=== PATIENT | male | born 1965 | race Caucasian/White ===

== ENCOUNTER 2024-01-26 21:31 | Inpatient (IN) | payer BC, SELFPAY ==
[2024-01-26] VITALS (8 sets, daily range): BP systolic 120–145; BP diastolic 66–88; BMI 26.5; BMI 26.1
[2024-01-26] MEDS: NSS 500 IV (16:11)
[2024-01-26] MEDS: TORADOL 15 MG IV (16:12)
[2024-01-26 16:22] LABS: % Basophils 0.5 % (0-2); % Eosinophils 0.7 % (0-6); % Immature Granulocytes 0.4 % (0-0.5); % Lymphocytes 14.8 % (20.5-51.1); % Monocytes 5.9 % (1.7-9.3); % Neutrophils 77.7 % (42.2-75.2); Absolute Basophils 0.1 10^3/uL (0-0.2); Absolute Eosinophils 0.1 10^3/uL (0-0.7); Absolute Immature Granulocytes 0.1 10^3/uL (0-0.05); Absolute Lymphocytes 2.5 10^3/uL (1.2-3.4); Absolute Neutrophils 13.2 10^3/uL (1.4-6.5); Hematocrit 41.6 % (39.0-52.0); Hemoglobin 14.8 g/dL (13.0-18.0); Mean Corp Hgb Conc. 35.6 g/dL (33.0-37.0); Mean Corpuscular Hgb 28.9 pg (27.0-31.0); Mean Corpuscular Volume 81.3 fL (80.0-94.0); Mean Platelet Volume 9.3 fL (7.4-10.4); Nucleated Red Blood Cells % 0 % (-); Platelet Count 362 10^3/uL (130-400); Red Blood Cell Count 5.12 10^6/uL (4.70-6.10); Red Cell Dist. Width 12.7 % (11.5-14.5)
[2024-01-26 16:29] LABS: Urine Albumin 2+ (Neg - Trace); Urine Bilirubin Negative (Negative); Urine Character Very Cloudy (Clear); Urine Color Red; Urine Glucose Negative (Negative); Urine Ketone Negative (Negative); Urine Leukocyte 1+ (Negative); Urine Nitrite Negative (Negative); Urine Occult Blood 4+ (Negative); Urine Urobilinogen 1+ (Neg - 1+)
[2024-01-26 16:40] LABS: ALT (SGPT) 23 U/L (0-50); AST (SGOT) 25 U/L (17-59); Albumin 4.7 g/dl (3.5-5.0); Alkaline Phosphatase 119 U/L (38-126); Blood Urea Nitrogen 19 mg/dl (9-20); Calcium 10.2 mg/dl (8.4-10.2); Carbon Dioxide 20 mmol/L (22-30); Chloride 99 mmol/L (98-107); Estimated Creatinine Clearance 83 ml/min; Glucose 119 mg/dl (70-99); Lipase 113 U/L (23-300); Potassium 4.2 mmol/L (3.5-5.1); Sodium 136 mmol/L (135-145); Total Bilirubin 0.6 mg/dl (0.2-1.3); Total Protein 7.1 g/dl (6.3-8.2); Urine Bacteria Few (Negative); Urine Red Blood Cell 90-100 /HPF (0-2); Urine Squamous Cell 0-2 /LPF (Few); eGFR > 60.00
--- NOTE | 2024-01-26 20:02 | ED.GENMED ---
History of Present Illness
General
Chief Complaint: Abdominal Symptoms
Time Seen by Provider: 01/26/24 15:23
History of Present Illness
History of Present Illness:
Patient presents with right lower abdominal pain and mild diffuse lower abdominal pain along with right flank pain. Started earlier today. Also noted hematuria. Some dysuria.
Past History
Past History
ED Past Medical History: HTN and Hypercholesterolemia
ED Past Surgical History: None
Phy Exam
Physical Exam
Physical Exam:
GENERAL: Alert and oriented in no apparent distress
EYE: Orbits normal.
NECK: Supple, no significant adenopathy.
ENT: Pharynx without erythema
CARDIAC: Regular rate and rhythm without any obvious murmurs.
LUNGS: Clear breath sounds,normal
ABDOMEN: Soft, without focal tenderness or distention. No CVA tenderness
NEUROLOGICAL: Alert and oriented , grossly non-focal
SKIN: Warm and dry, no rash or lesion, no discoloration, skin intact.
MUSCULOSKELETAL: No edema,no deformity.Good color
PSYCH: Normal and appropriate interaction.
Course
Orders/Labs/Results
Orders:
Orders
01/26/24 15:56
IV Insert/Care/Rem.- Treatment PRN
0.9% Sodium Chloride 500 ml [Nss] 500 ml IV BOLUS
Ketorolac [Toradol] 15 mg IV NOW STA
01/26/24 15:57
CT Abd/pel Without Iv Or Oral Urgent
Comment:
Reason For Exam: Right flank pain/hematuria
01/26/24 16:10
Complete Blood Count/With Diff Urgent
Comprehensive Metabolic Panel Urgent
Lipase Urgent
Urinalysis Reflex To Culture Urgent
Date Specimen was Collected: 01/26/24
Time Specimen was Collected: 16:04
Urine Microscopic Reflex Cult Urgent
Urine Culture Urgent
ROSEANNE Source: U
Specimen Description:
Date Specimen was Collected: 01/26/24
Time Specimen was Collected: 16:04
01/26/24 19:59
Urine Culture Urgent
ROSEANNE Source: Urine
Specimen Description:
01/26/24 20:01
CefTRIAXone [Rocephin] 1,000 mg IV NOW STA
Abnormal Lab Results
01/26/24
16:10
WBC 17.0 H 10^3/uL
(4.8-10.8)
Abs Immat Gran (auto) 0.1 H 10^3/uL
(0-0.05)
Absolute Neuts (auto) 13.2 H 10^3/uL
(1.4-6.5)
Absolute Monos (auto) 1.0 H 10^3/uL
(0.1-0.6)
Neutrophils % 77.7 H %
(42.2-75.2)
Lymphocytes % 14.8 L %
(20.5-51.1)
Carbon Dioxide 20 L mmol/L
(22-30)
Glucose 119 H mg/dl
(70-99)
Ur Occult Blood Reflex 4+ A
(Negative)
Leukocyte Esterase Rfl 1+ A
(Negative)
Urine RBC 90-100 A /HPF
(0-2)
Urine Bacteria (Reflex) Few A
(Negative)
Urine Albumin (Reflex) 2+ A
(Neg - Trace)
01/26/24 16:10
01/26/24 16:10
Vital Signs
Initial and Last Documented VS:
Initial Vital Signs
Temp Pulse Resp BP Pulse Ox
98.0 F 70 16 145/84 98
01/26/24 15:13 01/26/24 15:13 01/26/24 15:13 01/26/24 15:13 01/26/24 15:13
Last Documented Vital Signs
Temp Pulse Resp BP Pulse Ox
98.0 F 77 18 125/75 98
01/26/24 15:13 01/26/24 18:30 01/26/24 18:30 01/26/24 19:00 01/26/24 19:00
MDM/Problems Addressed
Differential Diagnosis Includes:
Right flank pain hematuria. Consistent with kidney stone. Workup in progress. Bilateral ureteral stones with 1 causing hydro. Perinephric stranding bilaterally. 17,000 white count. Discussed with urology. Admit IV antibiotics plan for OR
tomorrow
*Radiology
Radiology exam reviewed: radiology read reviewed (Obstructing stone right UVJ. Nonobstructing ureteral stone left UVJ. Bilateral perinephric stranding)
*Pulse Oximetry
Patient hypoxic: no
*Critical Care Note
Total Time (30-74mins, 75-104mins- exclusive of procedures): Not Applicable
Update Note
Update Note:
Reviewed results and labs with urology. Given the bilateral ureteral stones, obstructing stones in the right, bilateral perinephric stranding and 17,000 count patient will be admitted IV antibiotics. Plan would be OR tomorrow
ED Attending Note
-
Portions of this chart may have been created with voice recognition software.� Occasional wrong word or��sound alike� substitutions may have occurred due to the inherent limitations of voice recognition software.
Discharge Plan
Departure
Patient Disposition: Admit
Date of Disposition: 01/26/24
Time of Disposition: 20:02
Presentation/result/management discussed w/ accepting MD/DO: Medhat
Discharge Problem:
5 mm right UVJ stone with obstruction, Ureteral stones left mid ureter
Referrals:
Deny Voss MD [Family Provider] -
Interventions
Interventions:
*Risk Screen - Suicide Last Done: 01/26/24 16:05
*General Assessment Last Done: 01/26/24 16:05
*Neglect/Abuse Screening Last Done: 01/26/24 16:05
ED- Fall Risk Assessment Last Done: 01/26/24 16:30
*ED COVID-19 Vaccine History Last Done: 01/26/24 16:05
IZ-Xjhoah-Tdfgzobfhl Assessment Last Done: 01/26/24 16:30
Discharge Date and Time
Print Language: UZBEK
[2024-01-26] MEDS: ROCEPHIN 1000 MG IV (20:16)
--- NOTE | 2024-01-26 21:12 | HPS.HSE ---
Family Physician
-
Family Physician: Deny Voss
Chief Complaint
-
Flank Pain / Hematuria
History of Present Illness
Patient is a 58y M with PMH significant for hypertension and dyslipidemia who presents to ED complaining of back pain, abdominal pain and hematuria. Patient states that he noted lower back discomfort yesterday and lower abdominal pain and
grossly bloody urine earlier today. He denies any prior history of kidney stones. No fevers / chills. No N/V/D. No other current complaints.
Medical History
Past Medical History
Past Medical History: Reports Other
Additional Past Medical History:
Hypertension
Dyslipidemia
Past Surgical History: Reports None and Other
Social History
Tobacco: Non-smoker
Alcohol: None
Drug: None
Family History
Family History: Not pertinent
Allergies / Home Medications
Allergies reflects when Allergies were last updated in [facility].
Home Medications with original date entered in [facility]
Allergy/Medication List:
Allergies
Allergy/AdvReac Type Severity Reaction Status Date / Time
No Known Allergies Allergy Verified 01/26/24 15:15
Home Medications
atorvastatin 10 mg tablet 10 mg PO QPM 01/26/24
lisinopril 20 mg tablet 20 mg PO QPM 01/26/24
Review of Systems
-
History Source: Patient
A 12 point ROS was completed and negative except as noted: Yes
Constitutional: Denies Fever, Fatigue or Chills
Respiratory: Denies Cough or Trouble Breathing
Cardiac: Denies Chest Pain or Palpitations
Abdomen/GI: Reports Abdominal Pain; Denies Nausea, Vomiting or Diarrhea
: Reports Flank Pain and Bleeding; Denies Dysuria
Musculoskeletal: Denies Joint Pain or Edema
Neurological: Denies Dizzy or Headache
Psych: Denies Depression or Anxiety
Physical Exam
Vital Signs
Vital Signs
Temp Pulse Resp BP Pulse Ox
98.0 F 77 18 125/75 98
01/26/24 15:13 01/26/24 18:30 01/26/24 18:30 01/26/24 19:00 01/26/24 19:00
Physical Exam
General: Other (58y M in no acute distress.)
HEENT: Moist mucous membranes and PERRLA
Respiratory: Clear; No Wheezes, Rales or Rhonchi
Cardiac: S1/S2 and Regular Rhythm; No Murmur
GI: Soft, Non Tender, Non Distended and Normal Bowel Sounds
Genito-urinary: Costovertebral angle tend
Musculoskeletal: No Clubbing, No Cyanosis and No Edema
Neuro: AO x 3
Laboratory Results
-
01/26/24 16:10
01/26/24 16:10
Laboratory Results
Total Bilirubin 0.6 mg/dl (0.2-1.3) 01/26/24 16:10
AST 25 U/L (17-59) 01/26/24 16:10
ALT 23 U/L (0-50) 01/26/24 16:10
Alkaline Phosphatase 119 U/L (38-126) 01/26/24 16:10
Lipase 113 U/L (23-300) 01/26/24 16:10
Impression/Plan
-
A/P: Patient is a 58y M with PMH significant for hypertension who presents to ED complaining of flank pain, abdominal pain and hematuria.
Bilateral Ureteral Stones
- Admit for further evaluation and treatment.
- Bilateral UPJ stones with mild hydronephrosis on the R.
- Afebrile and non-toxic appearing.
- Flomax, IVFs, empiric abx and pain control.
- Urology evaluation for possible OR in the AM.
- Strain urine overnight.
Anion Gap Metabolic Acidosis
- AG = 17 on admission. Unclear etiology.
- Check lactic acid level.
- IVFs / abx as noted above.
- Follow for changes in labs / ltes.
Benign Hypertension
- Stable. Hold lisinopril acutely.
DVT Prophylaxis: SCDs
Code Status: Full
[2024-01-26 21:37] LABS: Lactic Acid 2.4 mmol/L (0.7-2.0)
[2024-01-26] MEDS: NSS 1000 IV (22:20)
--- NOTE | 2024-01-27 02:10 | PTCARENOTE ---
22:00 pt rec'd from ER.aaox3,self ambulates, used of restroom voided 200cc donavon urine, urine strained no stones noted. IVf nss at 125 via RAC, VS wnl, pt denies pain, oriented to unit.
[2024-01-27] MEDS: NSS 1000 IV (05:53)
[2024-01-27 06:16] LABS: Hematocrit 39.3 % (39.0-52.0); Hemoglobin 13.9 g/dL (13.0-18.0); Mean Corp Hgb Conc. 35.4 g/dL (33.0-37.0); Mean Corpuscular Hgb 29.4 pg (27.0-31.0); Mean Corpuscular Volume 83.1 fL (80.0-94.0); Mean Platelet Volume 9.2 fL (7.4-10.4); Platelet Count 323 10^3/uL (130-400); Red Blood Cell Count 4.73 10^6/uL (4.70-6.10); Red Cell Dist. Width 12.7 % (11.5-14.5); White Blood Cell Count 11.5 10^3/uL (4.8-10.8)
[2024-01-27 06:26] LABS: Lactic Acid 1.5 mmol/L (0.7-2.0)
[2024-01-27 06:29] LABS: Blood Urea Nitrogen 23 mg/dl (9-20); Carbon Dioxide 22 mmol/L (22-30); Chloride 104 mmol/L (98-107); Estimated Creatinine Clearance 83 ml/min; Glucose 102 mg/dl (70-99); Potassium 4.4 mmol/L (3.5-5.1); Sodium 137 mmol/L (135-145); eGFR > 60.00
[2024-01-27] MEDS: FLOMAX 0.4 MG PO (07:15)
--- NOTE | 2024-01-27 07:21 | W.PN.HOSP.TC ---
Today's Communication/Plan
-
discharge
Assessment / Plan
Assessment / Plan
Physical Exam
General: no acute distress appears comfortable at this time.
HEENT: Moist mucous membranes and PERRLA
Respiratory: Clear; No Wheezes, Rales or Rhonchi
Cardiac: S1/S2 and Regular Rhythm; No Murmur
GI: Soft, Non Tender, Non Distended and Normal Bowel Sounds
Genito-urinary: Costovertebral angle tend
Musculoskeletal: No Clubbing, No Cyanosis and No Edema
Neuro: AO x 3
A/P: Patient is a 58y M with PMH significant for hypertension who presents to ED complaining of flank pain, abdominal pain and hematuria.
Bilateral Ureteral Stones
- Bilateral UPJ stones with mild hydronephrosis on the R. noted on CT
- Afebrile and non-toxic appearing
- received Flomax, IVFs, empiric abx and pain control.
-Pain since resolved
-follow up Abd XR appreciated absence rt UVJ stone, left ureter cluster calculi noted unchanged, right nephrolithiasis
- counseled to Strain urine
- Urology eval appreciated stable for discharge home with outpatient follow up recommendations
Anion Gap Metabolic Acidosis
- likely d/t mild lactic acidosis
-since resolved with IVF
Benign Hypertension
- Stable.
- resume home Lisinopril on discharge
DVT Prophylaxis: SCDs
Code Status: Full
Medically stable for discharge home with outpatient follow up recommendations.
Total Time Preparing Discharge ___40____ minutes including examination of the patient, summary of the hospital stay, instructions for continuing care to all relevant caregivers; and preparation of discharge records, prescriptions, and referral
forms if necessary.
Anticipated Discharge: Today
Subjective/Interval History
-
Date of Service: January 27, 2024
No acute distress. Pain free. Reports feeling well. Has not noted passed stone. Denies new acute issues. Eager to go home.
Objective Data
-
Labs:
Laboratory Results
01/27/24
06:04
WBC 11.5 H
Hgb 13.9
Hct 39.3
Plt Count 323
Sodium 137
Potassium 4.4
Chloride 104
Carbon Dioxide 22
BUN 23 H
Creatinine 1.1
Glucose 102 H
Calcium 9.0
Vital Signs:
Vital Signs
Temp Pulse Resp BP Pulse Ox
98.1 F 101 16 126/88 97
01/26/24 22:30 01/26/24 22:30 01/26/24 22:30 01/26/24 22:30 01/26/24 22:30
I&O
01/26/24 01/27/24 01/28/24
06:59 06:59 06:59
Intake Total 240 / 240
Output Total 1525 / 1525
Balance -1285 / -1285
--- NOTE | 2024-01-27 07:49 | CONS.URO ---
Consultation
-
Date/Time Consultation Requested: 01/26/24
Date/Time Consultation Performed: 01/27/24
Requesting Provider: ED
Performing Provider: Medhat
Reason for Consultation: bilateral obstructing stones, right hydronephrosis, leukocytosis
Medical History
History of Present Illness
58M presents to ED w/ acute onset of right lower back and abdominal pain w/ grossly bloody urine early in day on 01/26/24.
Denies h/o kidney stones.
Denies F/C.
Denies N/V.
Interestingly, denies h/o left flank/back/abdominal pain - despite large volume stone burden in left ureter WITHOUT radiographic evidence of obstructive uropathy - suspect chronic obstruction.
Past Medical History
Past Medical History: HTN and Other (dyslipidemia)
Past Surgical History: None
Social History
Tobacco: Non-smoker
Alcohol: None
Drug: None
Personal:
Living: With Family
Employment: Employed
Family History
Family History: Reviewed & Not Pertinent
Allergies/Home Medications
Allergies
Allergy/AdvReac Type Severity Reaction Status Date / Time
No Known Allergies Allergy Verified 01/26/24 15:15
Home Medications
�Medication �Instructions �Recorded �Confirmed �Type
atorvastatin 10 mg tablet 10 mg PO QPM 01/26/24 01/26/24 History
lisinopril 20 mg tablet 20 mg PO QPM 01/26/24 01/26/24 History
Review of Systems
-
History Source: Patient
A 12 point Review of Systems was completed except as noted: Yes
Physical Exam
Vital Signs
Vital Signs
Temp Pulse Resp BP Pulse Ox
98.1 F 101 16 126/88 97
01/26/24 22:30 01/26/24 22:30 01/26/24 22:30 01/26/24 22:30 01/26/24 22:30
Lab / Testing Results
Laboratory Results
01/27/24 06:04
01/27/24 06:04
Physical Exam
General: Well Developed, Well Nourished, No Apparent Distress and Comfortable
HEENT: Normocephalic and Anicteric
Respiratory: Non Labored Respirations
Cardiac: S1/S2
Breast: N/A
GI: Soft, Non Tender and Non Distended
Rectal: Deferred by Provider
Genito-urinary: No Costovertebral Tend
Musculoskeletal: No Edema
Skin: Warm and Dry
Neuro: AO x 3, No Motor Deficits and Nonfocal/Grossly Intact
Hematologic/Lymphatic: No Lymphadenopathy
Psych: Calm and Intact Judgement
Assessment / Plan
-
Obstructing 5 mm right UVJ stone w/ moderate hydronephrosis
>1 cm of distal left ureteral stones WITHOUT obstructive uropathy
Non-obstructing RLP renal stone
Punctate non-obstructing LLP renal stone
CTAP w/o IV contrast:
5 mm calculus at the medial margin of the right ureterovesical junction with mild to moderate obstructive uropathy. 5 mm nonobstructing lower pole right renal calculus.
Distal left ureter collection of closely packed calculi versus a single slightly irregular calculus measuring approximately 1 cm, situated approximately 5 cm proximal to the ureterovesical junction. However, no hydroureteronephrosis. Left renal
lower pole less than 1 mm nonobstructing calculus. Scattered regions of mild peripheral left renal cortical scarring.
WBC 17 => 11.5
Cr WNL
UA +RBCs, negative nitrites/WBCs
UCx pending
On IV Ceftriaxone
Patient notes NO pain since admission from ED last night - has not seen stone pass despite straining urine.
Discussed bilateral ureteral stone burden w/ evidence of obstructive uropathy only on right side (symptomatic side).
Given significant leukocytosis and bilateral perinephric stranding on CT, admission advised due to risk of upper tract infection.
Afebrile and HDS w/o pain this AM.
- KUB this AM (ordered)
- Start tamsulosin 0.4 mg qhs to facilitate stone passage
- If stone passed, OK to discharge home w/ outpatient F/U to discuss outpatient stone surgery
- If stone still present and remains asymptomatic, patient keen to go home today w/ outpatient trial of passage
D/w patient this AM.
Data Reviewed
-
Total Time Spent with Patient (in minutes): 45
CT Scan: Image personally visualized and interpreted, Report Reviewed by Me, Discussed with Physician and Discussed with Patient
Lab Data: Labs Reviewed, Discussed with Physician and Discussed with Patient
Old Records: Reviewed
[2024-01-27 07:59] VITALS: BP 130/77
--- NOTE | 2024-01-27 10:30 | W.PN.UPDATE ---
Update Note
Progress Note Update
KUB this AM reviewed - no right ureteral (specifically 5 mm UVJ) stone noted, left ureteral stone cluster visible in addition to non-obstructing right renal stones.
Given asymptomatic febrile status w/ evidence of stone passage on KUB, OK to discharge home.
Patient keen to go home and F/U as outpatient to discuss surgical management of chronically obstructing left ureteral stones.
D/w Hospitalist.
D/w patient.
--- NOTE | 2024-01-27 10:42 | CM ---
Admitted with ureteral stones
Met with pt at bedside
Pt lives in a 2 story home with his and [id number]; 3 steps to enter, 12 steps to 2nd fl
Independent, works FT, drives
DME - none
SNF/HH - denies past hx
Has ride at discharge
PCP - Deny Voss
Pharm - [facility]
CM will follow for d/c needs
Plan - anticipate home no needs when medially ready
--- NOTE | 2024-01-27 13:18 | W.DCSUMMARY ---
Discharge Summary
Discharge Data
Date of Admission: 01/26/24
Date of Discharge: 01/27/24
-
Pending Results: No
Discharge Plan
-
Patient Disposition: Home (Routine Discharge)
Discharge Diagnosis/Procedures: Kidney Stones
Condition: Good
Diet: Regular
Activity: As tolerated
Driving Restrictions: As prior to admission
Bathing Restrictions: None
Activity Restrictions/Additional Instructions:
Please follow up with primary care provider in 1 week of discharge and urology in 1-2 weeks of discharge.
Flomax has been prescribed to help facilitate passage of kidney stones.
Please take medications as prescribed/recommended and follow up with primary care provider and/or other healthcare provider involved in your care for refills and/or further adjustment of your medication regimen as necessary.
Instructions: Kidney stones in adults, How to Strain Your Urine
Referrals:
Deny Voss MD [Family Provider] - in one week
Rm Meléndez MD [Active] - in one to two weeks
Prescriptions:
New
tamsulosin 0.4 mg Capsule
0.4 mg PO DAILY 30 Days Qty: 30 0RF
Continued
atorvastatin 10 mg Tablet
10 mg PO QPM
lisinopril 20 mg Tablet
20 mg PO QPM
Discharge Orders:
Discharge Patient (As Directed); Ordered 01/27/24
Ordered By: Eduar Talamantes
Discharge Date and Time
Print Language: ARABIC
[2024-01-27 13:30] VITALS: BP 108/68
== END 2024-01-27 14:19 | disposition home or self-care (01) | DRG 694 ==
LOC: 2 SOUTH 21:31
PROVIDERS: Nurse Practitioner Family; ADMITTING PHYSICIAN Hospitalist; ATTENDING PHYSICIAN Internal Medicine; CONSULT PHYSICIAN Surgery; EMERGENCY PHYSICIAN Emergency Medicine; FAMILY PHYSICIAN Family Medicine
DX: N20.0 Calculus of kidney (principal); E87.20 Acidosis, unspecified; I10 Essential (primary) hypertension
CPT/HCPCS: 74018; 74176; 80048; 80053; 81003; 81015; 83605; 83690; 85025; 85027; 87086; 96361; 96374; 96375; 99285

== ENCOUNTER → 2024-02-16 16:30 | Outpatient (REF) | payer BC, SELFPAY | LOC: RAD 16:30 | PROVIDERS: ATTENDING PHYSICIAN Surgery; FAMILY PHYSICIAN Family Medicine | DX: N13.2 Hydronephrosis with renal and ureteral calculous obstruction (principal) | CPT/HCPCS: 74018 ==

== ENCOUNTER → 2024-04-03 18:29 | Outpatient (REF) | payer BC, SELFPAY | LOC: MRI 3T 18:29 | PROVIDERS: ATTENDING PHYSICIAN Surgery; FAMILY PHYSICIAN Family Medicine | DX: R97.20 Elevated prostate specific antigen [PSA] (principal) | CPT/HCPCS: 72197; A9575 ==